=== PATIENT | female | born 1955 | race Caucasian/White ===

== ENCOUNTER 2020-06-19 10:45 | Outpatient (REF) | payer BC, SELFPAY ==
--- NOTE | 2020-06-19 10:00 | PAPFT_PTH ---
PATIENT: Ning Pereira LOC: [facility]#:[id number] AGE/SX: 65/F ROOM: RE06/19/[address]: Cornelia Pedersen : 1955 BED: DIS: 06/19/2020 SPEC #: [id number] RECD: 06/19/20 18:32 STATUS: CHRIS REJakob #: [id number] RUBEN: 06/19/20 10:[address]: Cornelia Pedersen DEPT: [facility] Cytology RECD BY: Audra Causey Tissues: 1 - CX/ENDOCX FOR PAP SMEARS Procedures: PAP THIN PREP/UVM Screening HPV DNA PROBE Comments: [id number]
[2020-06-19 19:01] LABS: ALT 27 U/L (14-59); AST 17 U/L (15-37); Albumin 4.1 g/dL (3.4-5.0); Alkaline Phosphatase 71 U/L (46-116); Anion Gap 8.1 mmol/L (3-11); BUN 19 mg/dL (7-18); Bilirubin, Total 0.9 mg/dL (0.2-1.0); CO2 24.9 mmol/L (21.0-32.0); Calculated LDL 129 mg/dL (<100); Chloride 107 mmol/L (98-107); Cholesterol 238 mg/dL (<200); Glucose 107 mg/dL (74-106); HDL Cholesterol 68 mg/dL (40-60); Potassium 4.2 mmol/L (3.5-5.1); Sodium 140 mmol/L (136-145); Total Protein 7.2 g/dL (6.4-8.2); Triglyceride 208 mg/dL (<150)
== END 2020-06-19 11:05 ==
LOC: NCHCN 10:45
PROVIDERS: PCP Nurse Practitioner; Visit Provider Nurse Practitioner
DX: Z00.00 Encounter for general adult medical examination without abnormal findings (principal); Z13.228 Encounter for screening for other metabolic disorders; Z13.220 Encounter for screening for lipoid disorders; Z12.4 Encounter for screening for malignant neoplasm of cervix; Z11.51 Encounter for screening for human papillomavirus (HPV)
CPT/HCPCS: 80053; 80061; 88142; 87624

== ENCOUNTER 2020-09-06 01:55 | Outpatient (CLI) | payer BC, SELFPAY ==
--- NOTE | 2020-09-06 | DI.MAMMO_ITS ---
EXAM: MG MAMMO SCREENING CLINICAL HISTORY: SCREENING, Z12.39 TECHNIQUE: Bilateral full field digital CC and MLO mammographic images were obtained with 3D tomosyn thesis and utilizing computer aided detection (CAD). COMPARISON: Available for comparison. FINDINGS: Masses/Architectural Distortion: None seen. Microcalcifications: No suspicious pleomorphic-type are seen. Skin Thickening/Nipple Retraction: None. IMPRESSION: 1. No significant interval change with no specific features of malignancy noted. 2. Unless there is more urgent need, screening mammography is recommended, as per [employer] guidelines. BI-RADS Category 1 - Negative Breast Density - Category B - Scattered areas of fibroglandular density A negative radiographic report should not delay biopsy if a dominant or clinically suspicious mass is present. Up to ten percent of cancers are not identified on mammography. A negative report may reinforce clinical impression. Adenosis and dense breasts may obscure an underlying neoplasm. False positive reports average 6 to 10%. Patient will receive a letter notifying them of these results.
--- NOTE | 2020-09-06 | DI.CTLCSR_ITS ---
EXAM: CT CHEST LUNG CANCER SCREEN CLINICAL HISTORY: CURRENT SMOKER, F17.200, SCREENING FOR LUNG CA TECHNIQUE: Imaging Protocol: Axial computed tomography images with coronal and sagittal reformatted images were created and reviewed COMPARISON: No exams were available for comparison FINDINGS: Tracheobronchial tree: Patent where visualized. Mediastinum and [place]: No dominant adenopathy or fluid collection. Pulmonary parenchyma: No consolidation or dominant measurable mass. Scarring in the left lower lobe. Calcified granuloma in the right lower lobe. Lung Nodules: Small 0.5 cm pleural based nodule or scarring in the right upper lobe. Pleura: No effusion or pneumothorax. Heart: The heart is not dilated. No coronary artery calcifications are seen. Aorta: Thoracic aorta non-dilated. Upper abdomen: Unremarkable. Bones: Within normal limits. Soft Tissues: Unremarkable. IMPRESSION: Single 0.5 cm pleural based nodule or scarring in the right upper lobe. Lung RADS Cat 2 - Benign Appearance / Behavior: Nodules with a very low likelihood of becoming a clin ically active cancer due to size or lack of growth Lung-RADS 1.0 CATEGORIES: Category 0 - Prior chest CT exam(s) being located for comparison. Category 1 - Annual screening in 12 months. No nodules or definitely benign nodules. Category 2 - Annual screening in 12 months. Benign appearance. Nodules with low likelihood of becomin g active cancer. Category 3 - 6-month follow-up. Probably benign. Short-term follow-up suggested. Nodules with low lik elihood of becoming active cancer. Category 4A - 3-month follow-up and CT/PET if >8 mm in size. Suspicious finding. Findings which requi re additional testing. Category 4B - Findings which require additional testing and tissue sampling. Suspicious finding. C Added to Any of the Above - History of prior lung cancer screening. S Added to Any of the Above - Significant unexpected other finding. RADIATION DOSE DELIVERED: 71.32mGy.cm Total DLP DATA REPOSITORY: All CT scans at this facility are submitted to the National Radiology Data Registry (NRDR) Dose Index Registry (DIR) with the [employer] (ACR). RADIATION OPTIMIZATION: All CT scans at this facility use at least one of these dose optimization te chniques: automated exposure control; mA and/or kV adjustment per patient size (includes targeted exa ms where dose is matched to clinical indication); or iterative reconstruction.
== END 2020-09-06 02:15 ==
PROVIDERS: PCP Nurse Practitioner; Visit Provider Nurse Practitioner
DX: Z12.31 Encounter for screening mammogram for malignant neoplasm of breast (principal); F17.200 Nicotine dependence, unspecified, uncomplicated; R91.8 Other nonspecific abnormal finding of lung field
CPT/HCPCS: 77063; 77067; G0297

== ENCOUNTER 2020-09-18 05:42 | Outpatient (REF) | payer BC, SELFPAY ==
[2020-09-21 07:30] LABS: Patient Race White; SARS-CoV-2 RNA Undetected (Undetected); SARS-CoV-2 Specimen Source Nasal
== END 2020-09-18 06:02 ==
LOC: NCHCN 05:42
PROVIDERS: PCP Nurse Practitioner; Visit Provider Nurse Practitioner Family
DX: R19.7 Diarrhea, unspecified (principal)
CPT/HCPCS: U0003

== ENCOUNTER 2024-11-18 02:48 | Outpatient (CLI) | payer BC, SELFPAY ==
--- NOTE | 2024-11-18 07:15 | DI.DEXA_ITS ---
Exam(s) XR DEXA BONE DENSITY W/WO LATONIA EXAM: XR DEXA BONE DENSITY W/WO LATONIA CLINICAL HISTORY: screening for osteoporosis in postmenopausal status,z78.0 TECHNIQUE: [employer] Horizon C densitometer analysis of left hip, lumbar spine and left forearm. Lat eral survey image of the thoracic and lumbar spine. COMPARISON: DX DEXA BONE DENSITY WITH LATONIA from 12/30/2012 FINDINGS: Lateral view of the thoracic and lumbar spine shows no evidence of compression fractures. Bone mineral density measurements of the lumbar spine correspond to a total T-score of -1.2, in the osteopenic range. This is not significantly changed from prior. Bone mineral density measurements of the left hip correspond to a total T-score of -1.0. This repre sents a 4.9 percent decrease from 2013. The femoral neck T-score is -1.5, in the osteopenic range.. Theleft forearm bone mineral density measurements correspond to a T-score of the distal 3rd of -2.5, in the osteoporotic range. This represents an 11.8 percent decrease from 2013.. IMPRESSION: Osteopenia of the lumbar spine and left hip. Mild osteoporosis of the left forearm.
--- NOTE | 2024-11-18 10:25 | DI.MAMMO_ITS ---
Exam(s) MAMMO SCREENING EXAM: MAMMO SCREENING CLINICAL HISTORY: screening,z12.39. TECHNIQUE: Bilateral full field digital CC and MLO mammographic images were obtained with 3D tomosyn thesis and utilizing computer aided detection (CAD). COMPARISON: Prior mammograms dating back to 2015 were reviewed. FINDINGS: There has been no significant change in the appearance and distribution of the fibroglandular tissue. Small group of microcalcifications in the left breast is unchanged from 2015 and therefore benign. There are no new spiculated masses nor malignant appearing microcalcification groups. Right breast skin mole again noted. There is no significant architectural distortion nor skin thickening-retraction. IMPRESSION: No radiographic evidence of malignancy. BI-RADS Category 2 - Benign Findings Breast Density - Category B - Scattered areas of fibroglandular density Breast density Category C or D implies that the patient has dense breast tissue. Dense breast tissue can make it harder to find cancer on a mammogram. Dense breast tissue is also associated with an incr eased risk of breast cancer. This information about the result of the mammogram report was provided to the patient to raise their awareness. Use this report when you speak with the patient about their risks for breast cancer, which includes their family history. At that time, you may recommend additional screening tests (Ultrasoun d or MRI) as these tests may add significant information. A negative radiographic report should not delay biopsy if a dominant or clinically suspicious mass is present. Up to ten percent of cancers are not identified on mammography. A negative report may reinforce clinical impression. Adenosis and dense breasts may obscure an underlying neoplasm. False positive reports average 6 to 10%. Patient will receive a letter notifying them of these results.
--- NOTE | 2024-11-18 11:08 | DI.CTLCSR_ITS ---
Exam(s) CT CHEST LUNG CANCER SCREEN EXAM: CT CHEST LUNG CANCER SCREEN CLINICAL HISTORY: Screening for lung cancer,current smoker, f17.210. TECHNIQUE: Imaging Protocol: Low Dose Technique CONTRAST MATERIAL: None COMPARISON: CT CT CHEST LUNG CANCER SCREEN from 09/06/2020 FINDINGS: CHEST: LUNGS: Is a small calcified granuloma in the right upper lobe, unchanged from 2020. The previously d escribed pleural based 5 mm nodule in the right upper lobe appears unchanged.. No new pulmonary nodu les. Some benign-appearing increased markings in the anterior basal segment of the left lower lobe a re unchanged. No pleural effusions. MEDIASTINUM: There is no obvious hilar nor mediastinal adenopathy. CARDIAC: Heart size is upper normal. There is mild thickening of the pericardium again noted, unchan ged. Maximum thickness anteriorly is 3 mm..Caliber of the thoracic aorta is within normal limits. OTHER: OSSEOUS: No significant osseous lesions.No fractures. IMPRESSION: 1. Stable benign-appearing lung findings as described above, unchanged from CT scan of August 2020. 2. Mild pericardial thickening is also unchanged. 3. Lung RADS Cat 2S - Benign Appearance / Behavior: Nodules with a very low likelihood of becoming a clinically active caner due to size or lack of growth. Other: Clinically Significant or Potentially C linically Significant Findings (non lung cancer) Lung-RADS 1.0 CATEGORIES: Category 0 - Prior chest CT exam(s) being located for comparison. Category 1 - Annual screening in 12 months. No nodules or definitely benign nodules. Category 2 - Annual screening in 12 months. Benign appearance. Nodules with low likelihood of becomin g active cancer. Category 3 - 6-month follow-up. Probably benign. Short-term follow-up suggested. Nodules with low lik elihood of becoming active cancer. Category 4A - 3-month follow-up and CT/PET if >8 mm in size. Suspicious finding. Findings which requi re additional testing. Category 4B - Findings which require additional testing and tissue sampling. Category 4X - Category 3 or 4 nodules with additional features or imaging findings that increases the suspicion of malignancy. Modifier S- Potentially clinically significant findings (non lung cancer) RADIATION DOSE DELIVERED: 26.84mGy.cm Total DLP DATA REPOSITORY: All CT scans at this facility are submitted to the National Radiology Data Registry (NRDR) Dose Index Registry (DIR) with the [employer] (ACR). RADIATION OPTIMIZATION: All CT scans at this facility use at least one of these dose optimization te chniques: automated exposure control; mA and/or kV adjustment per patient size (includes targeted exa ms where dose is matched to clinical indication); or iterative reconstruction.
== END 2024-11-18 03:08 ==
LOC: DI 02:48
PROVIDERS: PCP Nurse Practitioner Family; Visit Provider Nurse Practitioner Family
DX: Z12.31 Encounter for screening mammogram for malignant neoplasm of breast (principal); F17.210 Nicotine dependence, cigarettes, uncomplicated; Z78.0 Asymptomatic menopausal state; Z12.2 Encounter for screening for malignant neoplasm of respiratory organs; Z13.820 Encounter for screening for osteoporosis; M85.89 Other specified disorders of bone density and structure, multiple sites
CPT/HCPCS: 71271; 77063; 77067; 77080

== ENCOUNTER 2024-11-18 03:48 | Outpatient (CLI) | payer BC, SELFPAY ==
[2024-11-18 10:36] LABS: ALT 19 U/L (14-59); AST 15 U/L (15-37); Albumin 4.1 g/dL (3.4-5.0); Alkaline Phosphatase 84 U/L (46-116); Anion Gap 8.4 mmol/L (3-11); BUN 13 mg/dL (7-18); Bilirubin, Total 1.13 mg/dL (0.2-1.0); CO2 27.6 mmol/L (21.0-32.0); Calculated LDL 123 mg/dL (<100); Chloride 105 mmol/L (98-107); Cholesterol 226 mg/dL (<200); Estimated GFR 61.75 (mL/min/1.73m2); Glucose 93 mg/dL (74-106); HDL Cholesterol 75 mg/dL (40-60); Sodium 141 mmol/L (136-145); Triglyceride 140 mg/dL (<150)
[2024-11-18 19:44] LABS: HBs Antibody, Quant <3.1 mIU/mL (See Note); Hep B Surface Ab Negative (See Note); Hepatitis B Core Antibody Negative (Negative); Hepatitis B Surface Antigen Negative (Negative)
[2024-11-18 19:48] LABS: HIV-1/2 Ag & Ab Screen Negative (Negative)
[2024-11-18 19:52] LABS: Hepatitis C Ab w Rflx HCV PCR Negative (Negative)
== END 2024-11-18 03:49 | disposition home or self-care (01) ==
PROVIDERS: PCP Nurse Practitioner Family; Visit Provider Nurse Practitioner Family
DX: Z13.220 Encounter for screening for lipoid disorders (principal); Z11.4 Encounter for screening for human immunodeficiency virus [HIV]; Z11.59 Encounter for screening for other viral diseases
CPT/HCPCS: 36415; 80053; 80061; 86704; 86706; 86803; 87340; 87389